=== PATIENT | male | born 1970 | race Caucasian/White ===

== ENCOUNTER 2023-01-22 09:01 | Outpatient (CLI) | payer OTHER, SELFPAY | END 2023-01-22 09:02 | disposition home or self-care (01) | PROVIDERS: PCP Physician Assistant Medical; Visit Provider Physician Assistant Medical | DX: Z00.00 Encounter for general adult medical examination without abnormal findings (principal); Z12.5 Encounter for screening for malignant neoplasm of prostate; Z13.1 Encounter for screening for diabetes mellitus; G47.9 Sleep disorder, unspecified; Z13.0 Encounter for screening for diseases of the blood and blood-forming organs and certain disorders involving the immune mechanism | CPT/HCPCS: 80053; 80061; 84153; 85027 ==

== ENCOUNTER 2023-02-11 09:39 | Outpatient (CLI) | payer OTHER, SELFPAY ==
--- NOTE | 2023-02-11 11:01 | W.ANESCHARGE ---
Anesthesia Charges Start Date/Time Anesthesia Start Date: 02/11/23 Anesthesia Start Time: 10:15 Stop Date/Time Anesthesia Stop Date: 02/11/23 Anesthesia Stop Time: 10:56
--- NOTE | 2023-02-11 11:46 | W.ANESCHARGE ---
Anesthesia Charges Start Date/Time Anesthesia Start Date: 02/11/23 Anesthesia Start Time: 10:15 Stop Date/Time Anesthesia Stop Date: 02/11/23 Anesthesia Stop Time: 10:56
== END 2023-02-11 09:40 | disposition home or self-care (01) ==
LOC: OP CLINIC 09:40
PROVIDERS: PCP Physician Assistant Medical; Visit Provider Surgery
DX: Z12.11 Encounter for screening for malignant neoplasm of colon (principal); K64.8 Other hemorrhoids
CPT/HCPCS: 00813; 43239; 45378; 88305; 88312; J2704

== ENCOUNTER 2024-04-28 12:02 | Outpatient (CLI) | payer OTHER, SELFPAY | END 2024-04-28 12:03 | disposition home or self-care (01) | LOC: NFLDREF 05-03 17:44 | PROVIDERS: PCP Physician Assistant Medical; Referring Provider Physician Assistant Medical; Visit Provider Physician Assistant Medical | DX: Z13.6 Encounter for screening for cardiovascular disorders (principal); Z12.5 Encounter for screening for malignant neoplasm of prostate; Z13.0 Encounter for screening for diseases of the blood and blood-forming organs and certain disorders involving the immune mechanism; Z13.1 Encounter for screening for diabetes mellitus | CPT/HCPCS: 80048; 80061; G0103 ==